=== PATIENT | female | born 1975 | race Caucasian/White ===

== ENCOUNTER 2018-06-01 09:10 | Emergency (ER) | payer OTHER ==
[~2018-06-01] VITALS: Ht 157.5 cm; Wt 52.6 kg
[2018-06-01] MEDS ORDERED: DIPHENHYDRAMINE HCL INJ 50 MG/ML VIAL IM ONE (09:30)
[2018-06-01] MEDS ORDERED: DEXAMETHASONE SOD PHOS 10 MG/1 ML VIAL IM ONE (09:30)
[2018-06-01 10:08] VITALS: BP 150/77
== END 2018-06-01 10:09 | disposition home or self-care (01) ==
LOC: FSED 09:10
DX: L50.0 Allergic urticaria (principal)
CPT/HCPCS: 96372; 99282; J1100; J1200